=== PATIENT | female | born 1955 | race African-American/Black ===

== ENCOUNTER 2017-12-05 11:11 | Emergency (ER) | payer OTHER ==
[2017-12-05 11:18] VITALS: BP 116/81; PULSE 104; TEMP 98.4; BMI 24.3
== END 2017-12-05 11:20 | disposition left against medical advice (07) ==
LOC: JER 11:11
DX: Z53.21 Procedure and treatment not carried out due to patient leaving prior to being seen by health care provider (principal)
CPT/HCPCS: 99281-25

== ENCOUNTER 2019-02-26 10:34 | Inpatient (IN) | payer OTHER ==
[2019-02-26] MEDS ORDERED: ALBUTEROL SO4 2.5/IPRATROPIUM 0.5 INH SOL 3 ML VIAL.NEB. NEB ONE ×3 (10:48→16:13)
[2019-02-26] MEDS ORDERED: MAGNESIUM SULFATE IN WATER 2 GM/50 ML IVPB IVPB ONE (10:54)
[2019-02-26] MEDS ORDERED: DEXAMETHASONE SOD PHOSPHATE 10 MG/1 ML VIAL ONE (10:54)
--- NOTE | 2019-02-26 11:04 | PDOC ---
Documentation entered by Mehrdad Mckeon SCRIBE, acting as scribe for Cathleen Campbell MD. Cathleen Campbell MD: This documentation has been prepared by the Mike bautista Nirvannie, SCRIBE, under my direction and personally reviewed by me in its entirety. I confirm that the documentation accurately reflects all work, treatment, procedures, and medical decision making performed by me. History of Present Illness - General Chief Complaint: Shortness of Breath Stated Complaint: SOB Time Seen by Provider: 02/26/19 10:40 History Source: Patient, EMS, Primary Care Provider Exam Limitations: No Limitations - History of Present Illness Initial Comments: 02/26/19 11:20 63YOF with significant past medical history of COPD (2L nocturnal O2 usage, 4 cigarettes/day), breast cancer (s/p left lower lobe resection), breast cancer (s /p blt mastectomy), HTN, CAD (failed stress test needs catheterization), angina pectoris, cataracts, and bipolar disorder 4 days of progressively worsening shortness of breath. As per PCP Dr. Jorge, patient was being evaluated in his office at which time she was significantly short of breath. Patient notes her symptoms have been ongoing for the past 4 days with associated chest tightness and productive cough with yellowish brown sputum. She notes one episode of hemoptysis yesterday described as a singular clot. Patient is positive for sick contacts, her nephew was flu positive. She notes associated paresthesias to the fingertips. As per EMS, patient received 2 Combivent treatments, 10mg of Decadron, and 2g of Mg. Denies fever, chills, dizziness, weakness, N, V, D, abdominal pain, bladder and bowel problems, leg swelling, No new changes in medications. Allergies: Morphine. Past Medical History: COPD (2L nocturnal O2 usage, 4 cigarettes/day), breast cancer (s/p left lower lobe resection), breast cancer (s/p blt mastectomy), HTN , CAD (failed stress test needs catheterization), bipolar disorder Social history: Lives with family. +Smoker (4/day previously 1.5 pack/day) No ETOH or drug use. Surgical history: Double mastectomy, Left Lower Lobe resection Meds: as documented in EMR PMD: Dr. Jared Jorge Traffic Sign Erection Supervisor: Dr. Arreaga 02/26/19 11:54 02/26/19 14:40 Past History - Past Medical History Allergies/Adverse Reactions: Allergies Allergy/AdvReac Type Severity Reaction Status Date / Time morphine Allergy Severe Difficulty Verified 06/11/18 13:10 Breathing Home Medications: Ambulatory Orders Aripiprazole [Abilify] 20 mg PO DAILY 09/01/15 Bupropion HCl [Wellbutrin Xl -] 100 mg PO DAILY 09/01/15 Cyclosporine [Restasis] 1 each OP BID 09/01/15 Fluocinonide 120 gm TP TID 09/01/15 Hydroxyzine HCl 50 mg PO DAILY 09/01/15 Latanoprost 0.005% Eye Drops [Xalatan 0.005% Eye Drops -] 1 drop HS 09/01/15 Tamoxifen Citrate 10 mg PO BID 09/01/15 Tobramycin/Lotepred Etab [Zylet Eye Drops] 2 drop OU BID 09/01/15 Travoprost [Travatan Z] 1 drop OU HS 09/01/15 Acetaminophen [Tylenol .Regular Strength -] 650 mg PO Q4H PRN #0 tablet Albuterol 0.083% Nebulizer Lindsay [Ventolin 0.083% Nebulizer Soln -] 1 amp NEB Q4H PRN #25 amp 09/07/15 Albuterol Sulfate [Proair Respiclick] 2 puff IH Q4H PRN #1 aer.[email or web address] 09/07/15 Aspirin Coated [Ecotrin -] 325 mg PO DAILY #30 tablet. 09/07/15 Atorvastatin Ca [Lipitor] 40 mg PO HS #20 tablet 09/07/15 Budesonide/Formeterol Fumarate [SYMBICORT 160/4.5mcg -] 2 puff IH BID #1 inhaler 09/07/15 Lactobacillus Acidophilus [Bacid -] 1 tab PO BID #60 tab 09/07/15 Prednisone 10 mg PO DAILY #20 tablet 09/07/15 Tiotropium [place] [Spiriva] 1 puff IH DAILY inh 09/07/15 Cancer: Yes (left lung resection, lung ca x 5) COPD: Yes HTN: Yes Hypercholesterolemia: No - Surgical History Lung Surgery: Yes (lower left lobe, rosemary mastectomy) - Psycho Social/Smoking Cessation Hx Smoking History: Current every day smoker Have you smoked in the past 12 months: No Number of Cigarettes Smoked Daily: 10 'Breaking Loose' booklet given: 09/01/15 Hx Alcohol Use: No Drug/Substance Use Hx: No Review of Systems - Review of Systems Able to Perform ROS?: Yes Comments:: 02/26/19 11:20 Constitutional: no fevers or chills. HEENT: no headache or dizziness. +nasal congestion. No visual/hearing disturbances. CVS: +Chest tightness. no syncope. Resp: + sob. + cough. Gastrointestinal: no abdominal pain, nausea or vomiting. Genitourinary: no urinary sx, hematuria. no urgency or frequency. MUSCULOSKELETAL: No joint pain and swelling. No neck or back pain. SKIN: no redness or skin changes, no discharge, no rash. No wounds. Hematologic: no easy bruising/bleeding. NEUROLOGIC: No headache, dizziness, LOC or altered mental status. No weakness. + Parasthesias of fingertips. Psych: no anxiety or depression All other systems reviewed and negative, or as documented in HPI. 02/26/19 11:54 02/26/19 11:54 *Physical Exam - Physical Exam 02/26/19 11:21 General: +Frail appearing. Awake and alert, +Moderate to severe respiratory distress. unable to speak full sentences. HEENT: NCAT, PERRL, EOMI, clear conjunctiva, anicteric, moist mucous membranes , clear oropharynx, no oral lesions.. Neck: neck supple, FROM Resp: +Expiratory and inspiratory wheezing throughout. +Increased work of breathing. +Tachypneic. retractions. CVS: +Tachycardia. no murmurs, 2+ peripheral pulses throughout, no peripheral edema Abdomen: soft, NTND, no rebound or guarding. No CVAT. Back: nontender, normal inspection and ROM MSK: no edema, BANUELOS x4, ROM intact. No clubbing or cyanosis. normal bulk and tone. Extremities: no calf tenderness, no swelling Neuro: alert, oriented appropriately; no focal neurologic deficits Skin: warm and well perfused, cap refill <2 sec, normal color 02/26/19 11:53 Heart Score/ECG Review #1 ECG reviewed & interpreted by me at: 10:55 General ECG Interpretation: Sinus Rhythm, Normal Intervals Compared to previous ECG there are: Changes noted 02/26/19 11:01 EKG sinus tachycardia at 107 bpm, no interval abnormalities, left axis deviation , narrow QRS, ST and T wave segments and morphology normal. Nonspecific T wave abnormalities likely rate related/artifact ED Treatment Course - LABORATORY CBC & Chemistry Diagram: 02/26/19 11:20 02/26/19 11:20 - RADIOLOGY Radiology Studies Ordered: Category Date Time Status CHEST X-RAY PORTABLE* [RAD] Stat Radiology 02/26/19 10:48 Ordered Medical Decision Making - Medical Decision Making 02/26/19 11:02 Vital Signs Temp Pulse Resp BP Pulse Ox 97.8 F 109 H 32 H 151/89 100 02/26/19 11:10 02/26/19 11:10 02/26/19 11:10 02/26/19 11:10 02/26/19 11:10 DDx SOB: ACS, PE, PTX, CHF, COPD exac, pulmonary edema, pleurisy, pneumonia, viral syndrome. effusion. anemia, electrolyte/metabolic derangements. influenza. vitals tachy and tachypneic 30s, increased WOB. +wheezing throughout, sats 100 % on nebs. moderate to severe respiratory distress, tachy; no hypoxia, but increased WOB s/p combivents x2, Mag 2g and Dexamethasone 10mg x1 en route with EMS will give one more, Bipap initiated on 12/15, tolerated for about 1 hour, got more anxious and declines further bipap/ABG ABG/labs, flu swab, CXR refused ABG, check VBG for now wnl, no acidosis or CO2 retention on VBG labs and lytes wnl, no wbc ct. no indication for cultures cxr clear, flu swab pending, pt initially refused. hold abx, no e/o bacterial infection as of now, still more likely viral syndrome. EKG sinus tachycardia, nonspecific T wave abnormalities, no ST elevations or depressions 02/26/19 14:27 Dimer is negative so unlikely to be PE, persistently tacky likely due to the COPD exacerbation nebulizer administration. Work of breathing is improved, placed on 4 L nasal cannula for oxygen supplementation and stable placed on Q4H albuterol for her wheezing, much improved on reassessment, spO2 > 95% on O2, tachy likely from nebs/COPD flare. Admit for severe COPD exacerbation. tele, supp O2, q4h albuterol, respiratory monitoring, tele/spO2, medical management, inpatient s/o to [facility], admitting to Dr Fred carrasco 02/26/19 14:45 Discharge - Discharge Information Problems reviewed: Yes Clinical Impression/Diagnosis: Acute exacerbation of chronic obstructive pulmonary disease (COPD) Condition: Fair - Admission Yes - Follow up/Referral - Patient Discharge Instructions - Post Discharge Activity
[2019-02-26 11:48] LABS: BASO % 0.6 % (0-2.0); EOS % 0.7 % (0-4.5); HEMATOCRIT 45.7 % (32.4-45.2); HEMOGLOBIN 15.3 GM/dL (10.7-15.3); LYMPH % 50.5 % (8-40); MCH 31.3 pg (25.7-33.7); MCHC 33.6 g/dl (32.0-36.0); MEAN CELL VOLUME 93.2 fl (80-96); MEAN PLT VOLUME 7.9 fl (7.5-11.1); NEUT % 42.2 % (42.8-82.8); PLATELET COUNT 351 K/MM3 (134-434); RDW 14.8 % (11.6-15.6); WHITE BLOOD COUNT 8.2 K/mm3 (4.0-10.0)
[2019-02-26] MEDS ORDERED: LORazepam 2 MG/ML SDV VIAL ONE (12:04)
[2019-02-26 12:12] LABS: VENOUS PC02 40.3 mmHg (38-52); VENOUS PH 7.37 (7.31-7.41)
[2019-02-26 12:16] LABS: ALBUMIN 3.8 g/dl (3.4-5.0); BILIRUBIN,TOTAL 0.4 mg/dL (0.2-1); BLOOD UREA NITROGEN 11.4 mg/dL (7-18); CREATININE 0.8 mg/dL (0.55-1.3); MAGNESIUM 2.8 mg/dL (1.8-2.4); POTASSIUM 3.9 mmol/L (3.5-5.1); TOT PROT 7.6 g/dl (6.4-8.2)
--- NOTE | 2019-02-26 12:29 | EKG ---
Test Reason : Blood Pressure : / mmHG Vent. Rate : 107 BPM Atrial Rate : 107 BPM P-R Int : 128 ms QRS Dur : 114 ms QT Int : 396 ms P-R-T Axes : 064 -34 058 degrees QTc Int : 528 ms POOR DATA QUALITY, INTERPRETATION MAY BE ADVERSELY AFFECTED SINUS TACHYCARDIA POSSIBLE LEFT ATRIAL ENLARGEMENT LEFT AXIS DEVIATION LEFT VENTRICULAR HYPERTROPHY POSSIBLE INFERIOR INFARCT , AGE UNDETERMINED PROLONGED QT ABNORMAL ECG WHEN COMPARED WITH ECG OF 01-SEP-2015 13:14, QT HAS LENGTHENED Confirmed by MD Samantha, Arthur ([id number]) on 02/26/2019 12:28:56 PM Referred By: Confirmed By:Arthur Singh MD
[2019-02-26 14:04] LABS: INR 0.92 (0.83-1.09); PROTHROMBIN TIME (PATIENT) 10.8 SEC (9.7-13.0)
[2019-02-26 14:07] LABS: ACTIVATED PTT 36.5 SECONDS (25.2-36.5)
[2019-02-26] MEDS ORDERED: ALBUTEROL SO4 0.083% IH SOL 2.5 MG/3 ML VIAL.NEB. NEB ONE ×2 (14:26→14:32)
--- NOTE | 2019-02-26 14:44 | HP ---
Admitting History and Physical - Primary Care Physician PCP: Jared Jorge - Admission Chief Complaint: progressive worsening SOB over 4 days History of Present Illness: 63YOF with PMH of COPD (2L nocturnal O2 usage, 4 cigarettes/day), breast cancer (s/p left lower lobe resection), breast cancer (s/p blt mastectomy), HTN, CAD ( failed stress test needs catheterization), angina pectoris, cataracts, and bipolar disorder. 4 days of progressively worsening shortness of breath. As per PCP Dr. Jorge, patient was being evaluated in his office at which time she was significantly short of breath. Patient notes her symptoms have been ongoing for the past 4 days with associated chest tightness and productive cough with yellowish brown sputum. She notes one episode of hemoptysis yesterday described as a singular clot. Patient is positive for sick contacts, her nephew was flu positive. She notes associated paresthesias to the fingertips. As per EMS, patient received 2 Combivent treatments, 10mg of Decadron, and 2g of Mg with slight improvement. History Source: Patient Limitations to Obtaining History: No Limitations - Past Medical History Cardiovascular: Yes: CAD (psitive ST pending cardiac cath), HTN Pulmonary: Yes: COPD, O2 Dependent (2L at night), Other (lung fungal infection s /p resection) Gastrointestinal: Yes: Cancer Heme/Onc: Yes: Cancer (Breast) Psych: Yes: Bipolar - Past Surgical History Past Surgical History: Yes: Mastectomy (BL) Additional Past Surgical History: Lung resection LLL - Smoking History Smoking history: Current every day smoker (4 cigarettes /day) Have you smoked in the past 12 months: Yes Aproximately how many cigarettes per day: 4 - Alcohol/Substance Use Hx Alcohol Use: No History of Substance Use: reports: None - Social History Usual Living Arrangement: Yes: With Child ADL: Independent Occupation: unemployed History of Recent Travel: No (Traveled to [facility] by car) Home Medications - Allergies Allergies/Adverse Reactions: Allergies Allergy/AdvReac Type Severity Reaction Status Date / Time morphine Allergy Severe Difficulty Verified 06/11/18 13:10 Breathing - Home Medications Home Medications: Ambulatory Orders Aripiprazole [Abilify] 20 mg PO DAILY 09/01/15 Bupropion HCl [Wellbutrin Xl -] 100 mg PO DAILY 09/01/15 Cyclosporine [Restasis] 1 each OP BID 09/01/15 Fluocinonide 120 gm TP TID 09/01/15 Hydroxyzine HCl 50 mg PO DAILY 09/01/15 Latanoprost 0.005% Eye Drops [Xalatan 0.005% Eye Drops -] 1 drop HS 09/01/15 Tamoxifen Citrate 10 mg PO BID 09/01/15 Tobramycin/Lotepred Etab [Zylet Eye Drops] 2 drop OU BID 09/01/15 Travoprost [Travatan Z] 1 drop OU HS 09/01/15 Acetaminophen [Tylenol .Regular Strength -] 650 mg PO Q4H PRN #0 tablet Albuterol 0.083% Nebulizer Lindsay [Ventolin 0.083% Nebulizer Soln -] 1 amp NEB Q4H PRN #25 amp 09/07/15 Albuterol Sulfate [Proair Respiclick] 2 puff IH Q4H PRN #1 aer.pow.ba 09/07/15 Aspirin Coated [Ecotrin -] 325 mg PO DAILY #30 tablet. 09/07/15 Atorvastatin Ca [Lipitor] 40 mg PO HS #20 tablet 09/07/15 Budesonide/Formeterol Fumarate [SYMBICORT 160/4.5mcg -] 2 puff IH BID #1 inhaler 09/07/15 Lactobacillus Acidophilus [Bacid -] 1 tab PO BID #60 tab 09/07/15 Prednisone 10 mg PO DAILY #20 tablet 09/07/15 Tiotropium [place] [Spiriva] 1 puff IH DAILY inh 09/07/15 Family Medical History Family Hx Cancer: Grandmother (maternal) Family Hx Cardiac Disorders: Mother, Father (Htn & CAD) Family Hx Diabetes: Mother, Father Family Hx Gastrointestinal Disorder: Father (cirrohosis) Review of Systems - Review of Systems Constitutional: reports: Chills, Fever (reported), Lethargy, Loss of Appetite, Malaise, Weakness Eyes: reports: No Symptoms HENT: reports: No Symptoms Neck: reports: No Symptoms Cardiovascular: reports: Shortness of Breath Respiratory: reports: Cough, Orthopnea, SOB, SOB on Exertion, Wheezing Gastrointestinal: reports: Nausea Genitourinary: reports: No Symptoms Breasts: reports: No Symptoms Reported Musculoskeletal: reports: Muscle Weakness Integumentary: reports: No Symptoms Neurological: reports: Parasthesia (to fongers BL) Endocrine: reports: No Symptoms Hematology/Lymphatic: reports: No Symptoms Psychiatric: reports: No Symptoms Physical Examination Vital Signs: Vital Signs Temperature 97.8 F 02/26/19 11:10 Pulse Rate 112 H 02/26/19 13:00 Respiratory Rate 21 H 02/26/19 13:00 Blood Pressure 112/84 02/26/19 13:00 O2 Sat by Pulse Oximetry (%) 98 02/26/19 13:00 Constitutional: Yes: Well Nourished, Mild Distress (r/t admission) Eyes: Yes: WNL, Conjunctiva Clear, EOM Intact HENT: Yes: WNL, Atraumatic, Normocephalic Neck: Yes: WNL, Supple, Trachea Midline Cardiovascular: Yes: Regular Rate and Rhythm, Tachycardia Respiratory: Yes: Cough (productive), Diminished (at bases), On Nasal O2 (4L), Wheezes (BL) Gastrointestinal: Yes: WNL, Normal Bowel Sounds ...Rectal Exam: Yes: Deferred Breast(s): Yes: Other (BL mastectomy) Musculoskeletal: Yes: Joint Stiffness Extremities: Yes: WNL Edema: No Peripheral Pulses WNL: Yes Peripheral Pulses: Left Radial: 2+, Right Radial: 2+, Left Doralis Pedis: 2+, Right Dorsalis Pedis: 2+, Left Femoral: 2+, Right Femoral: 2+ Integumentary: Yes: WNL Neurological: Yes: WNL, Alert, Oriented ...Motor Strength: LUE, LLE, RUE, RLE (generalized weakness) Psychiatric: Yes: WNL Labs: CBC, BMP 02/26/19 11:20 02/26/19 11:20 Imaging - Results Chest X-ray: Image Reviewed (no effusions, infiltrates) Problem List - Problems (1) Prophylactic measure Assessment/Plan: FEN diabetic diet IVF @ 75cc/hr until tomorrow(reported decreased PO intake) monitor electrolytes DVT heparin sq Dispo admit to med surg full code discharge planning Code(s): Z29.9 - ENCOUNTER FOR PROPHYLACTIC MEASURES, UNSPECIFIED (2) Acute exacerbation of chronic obstructive pulmonary disease (COPD) Assessment/Plan: Given decadron, combivent & Mg by EMS duo nebs q6h solumedrol 60mg q6h supplemental O2 prn BiPap if needed CXR without effusions/infiltarted refused Chest CTA, low suspicison for PE pulmonary consultation requested Problems reviewed: Yes Code(s): J44.1 - CHRONIC OBSTRUCTIVE PULMONARY DISEASE W (ACUTE) EXACERBATION (3) Bipolar disorder Assessment/Plan: c/w home medications abilify and wellbutrin Code(s): F31.9 - BIPOLAR DISORDER, UNSPECIFIED (4) CAD (coronary artery disease) Assessment/Plan: reported positive ST, pending cardiac cath Trop .02 c/w home dose asa Code(s): I25.10 - ATHSCL HEART DISEASE OF [place] CORONARY ARTERY W/O ANG PCTRS (5) SOB (shortness of breath) Assessment/Plan: supplemental O@ prn Bipap if needed inhaled bronchodilators solumedrol 60mg q6 pulmonary consult requested Code(s): R06.02 - SHORTNESS OF BREATH (6) Smoker Assessment/Plan: smoke 4 cigarettes /day counseled on smoking cessation Code(s): F17.200 - NICOTINE DEPENDENCE, UNSPECIFIED, UNCOMPLICATED Visit type - Emergency Visit Emergency Visit: Yes ED Registration Date: 02/26/19 Care time: The patient presented to the Emergency Department on the above date and was hospitalized for further evaluation of their emergent condition. - New Patient This patient is new to me today: Yes Date on this admission: 02/26/19 - Critical Care Critical Care patient: No
[2019-02-26] MEDS ORDERED: ACETAMINOPHEN 325 MG TABLET (FP) PO PRN (14:50)
[2019-02-26] MEDS ORDERED: SODIUM CHLORIDE 1,000 ML IV SCH (15:45)
[2019-02-26] MEDS ORDERED: ALBUTEROL SO4 0.083% IH SOL 2.5 MG/3 ML VIAL.NEB. NEB SCH (16:00)
[2019-02-26] MEDS ORDERED: methylPREDNISolone NA SUCC 40 MG/1 ML VIAL ONE (16:13)
[2019-02-26] MEDS: ALBUTEROL SO4 2.5/IPRATROPIUM 0.5 INH SOL 3 ML VIAL.NEB. NEB SCH ×2 (16:23→20:00)
[2019-02-26] MEDS: INSULIN SLIDING SCALE (NOVOLOG) 1 VIAL SQ SCH ×2 (16:31→21:22)
[2019-02-26] MEDS: methylPREDNISolone NA SUCC 40 MG/1 ML VIAL IVPUSH SCH ×2 (17:01→21:11)
[2019-02-26] MEDS ORDERED: INSULIN (NOVOLOG) ASPART 100 UNITS/ML 10ML VIAL ONE (20:58)
[2019-02-26] MEDS: ATORVASTATIN CA 40 MG TABLET (FP) PO SCH (21:12)
[2019-02-26] MEDS: LACTOBACILLUS ACIDOPHILUS 1 TABLET PO SCH (21:12)
[2019-02-26] MEDS: LATANOPROST 0.005% OPHTH SOLN 2.5ML BOTTLE OU SCH (22:47)
[2019-02-26] MEDS: TAMOXIFEN CITRATE 10 MG TABLET PO SCH (22:47)
[2019-02-26] MEDS: HEPARIN NA (PORCINE) 5,000 UNITS/ML 1ML VIAL SQ SCH (22:50)
[2019-02-27 01:58] VITALS: BMI 25.0
[2019-02-27] MEDS: methylPREDNISolone NA SUCC 40 MG/1 ML VIAL IVPUSH SCH ×4 (03:11→22:50)
[2019-02-27] MEDS: INSULIN SLIDING SCALE (NOVOLOG) 1 VIAL SQ SCH ×4 (06:34→23:02)
--- NOTE | 2019-02-27 07:41 | PN ---
Progress Note, Physician Chief Complaint: Patient very upset, wanting to sign out AMA. Audibly wheezing History of Present Illness: 63YOF with PMH of COPD (2L nocturnal O2 usage, 4 cigarettes/day), breast cancer (s/p left lower lobe resection), breast cancer (s/p blt mastectomy), HTN, CAD ( failed stress test needs catheterization), angina pectoris, cataracts, and bipolar disorder. 4 days of progressively worsening shortness of breath. As per PCP Dr. Jorge, patient was being evaluated in his office at which time she was significantly short of breath. Patient notes her symptoms have been ongoing for the past 4 days with associated chest tightness and productive cough with yellowish brown sputum. She notes one episode of hemoptysis yesterday described as a singular clot. Patient is positive for sick contacts, her nephew was flu positive. She notes associated paresthesias to the fingertips. As per EMS, patient received 2 Combivent treatments, 10mg of Decadron, and 2g of Mg with slight improvement. - Current Medication List Current Medications: Active Medications Acetaminophen (Tylenol -) 650 mg PO Q6H PRN PRN Reason: FEVER Albuterol/Ipratropium (Duoneb -) 1 amp NEB RQID [facility] Last Admin: 02/26/19 20:00 Dose: 1 amp Aripiprazole (Abilify) 20 mg PO DAILY [facility] Aspirin (Ecotrin -) 325 mg PO DAILY [facility] Atorvastatin Calcium (Lipitor -) 40 mg PO HS [facility] Last Admin: 02/26/19 21:12 Dose: 40 mg Bupropion HCl (Wellbutrin Xl -) 150 mg PO DAILY [facility] Heparin Sodium (Porcine) (Heparin -) 5,000 unit SQ BID [facility] Last Admin: 02/26/19 22:50 Dose: Not Given Sodium Chloride (Normal Saline -) 1,000 mls @ 75 mls/hr IV ASDIR [facility] Last Admin: 02/26/19 16:23 Dose: 75 mls/hr Insulin Aspart (Novolog Vial Sliding Scale -) 1 vial SQ ACHS [facility]; Protocol Last Admin: 02/27/19 06:34 Dose: Not Given Lactobacillus Acidophilus (Bacid -) 1 tab PO BID [facility] Last Admin: 02/26/19 21:12 Dose: 1 tab Latanoprost (Xalatan 0.005% Eye Drops -) 1 drop OU HS [facility] Last Admin: 02/26/19 22:47 Dose: 1 drop Methylprednisolone Sodium Succinate (Solu-Medrol -) 60 mg IVPUSH Q6H-IV [facility] Last Admin: 02/27/19 03:11 Dose: 60 mg Tamoxifen Citrate (Tamoxifen Citrate) 10 mg PO BID [facility] Last Admin: 02/26/19 22:47 Dose: 10 mg - Objective Vital Signs: Vital Signs Temperature 98.7 F 02/27/19 06:00 Pulse Rate 76 02/27/19 06:00 Respiratory Rate 20 02/27/19 06:00 Blood Pressure 145/98 02/27/19 06:00 O2 Sat by Pulse Oximetry (%) 94 L 02/26/19 19:30 Constitutional: Yes: Well Nourished, Anxious, Moderate Distress Eyes: Yes: WNL, Conjunctiva Clear HENT: Yes: WNL, Atraumatic, Normocephalic Neck: Yes: WNL, Supple, Trachea Midline Cardiovascular: Yes: Regular Rate and Rhythm, Tachycardia Respiratory: Yes: Cough, Poor Air Entry, SOB, Wheezes Gastrointestinal: Yes: WNL, Normal Bowel Sounds ...Rectal Exam: Yes: Deferred Genitourinary: Yes: WNL Breast(s): Yes: WNL Musculoskeletal: Yes: WNL Extremities: Yes: WNL Edema: No Peripheral Pulses WNL: Yes Peripheral Pulses: Left Radial: 2+, Right Radial: 2+, Left Doralis Pedis: 2+, Right Dorsalis Pedis: 2+, Left Femoral: 2+, Right Femoral: 2+ Integumentary: Yes: WNL Neurological: Yes: WNL, Alert, Oriented ...Motor Strength: WNL Psychiatric: Yes: Alert, Oriented, Agitated Labs: INR, PTT INR 0.92 (0.83-1.09) 02/26/19 13:00 - ....Imaging Chest X-ray: Image Reviewed Problem List - Problems (1) Prophylactic measure Assessment/Plan: FEN regular diet taking adequate PO intake now, IVF stopped monitor electrolytes DVT heparin sq Dispo maintain as inpatient full code discharge planning Code(s): Z29.9 - ENCOUNTER FOR PROPHYLACTIC MEASURES, UNSPECIFIED (2) Acute exacerbation of chronic obstructive pulmonary disease (COPD) Assessment/Plan: c/w duo nebs q6h solumedrol 60mg q6h supplemental O2 prn BiPap if needed CXR without effusions/infiltarted refused Chest CTA, low suspicison for PE pulmonary consultation requested, Dr Arreaga to see Code(s): J44.1 - CHRONIC OBSTRUCTIVE PULMONARY DISEASE W (ACUTE) EXACERBATION (3) Bipolar disorder Assessment/Plan: c/w home medications abilify and wellbutrin Code(s): F31.9 - BIPOLAR DISORDER, UNSPECIFIED (4) CAD (coronary artery disease) Assessment/Plan: reported positive ST, pending cardiac cath Trop .02 c/w home dose asa Code(s): I25.10 - ATHSCL HEART DISEASE OF [place] CORONARY ARTERY W/O ANG PCTRS (5) SOB (shortness of breath) Assessment/Plan: supplemental O2 prn Bipap if needed inhaled bronchodilators solumedrol 60mg q6 pulmonary consult requested Code(s): R06.02 - SHORTNESS OF BREATH (6) Smoker Assessment/Plan: smoke 4 cigarettes /day counseled on smoking cessation Code(s): F17.200 - NICOTINE DEPENDENCE, UNSPECIFIED, UNCOMPLICATED Visit type - Emergency Visit Emergency Visit: Yes ED Registration Date: 02/26/19 Care time: The patient presented to the Emergency Department on the above date and was hospitalized for further evaluation of their emergent condition. - New Patient This patient is new to me today: No - Critical Care Critical Care patient: No - Discharge Referral Referred to [facility] No
[2019-02-27 07:49] LABS: BASO % 0.2 % (0-2.0); HEMATOCRIT 41.9 % (32.4-45.2); HEMOGLOBIN 14.1 GM/dL (10.7-15.3); LYMPH % 13.1 % (8-40); MCH 31.1 pg (25.7-33.7); MCHC 33.5 g/dl (32.0-36.0); MEAN CELL VOLUME 92.9 fl (80-96); MEAN PLT VOLUME 8.3 fl (7.5-11.1); MONO % 0.8 % (3.8-10.2); NEUT % 85.9 % (42.8-82.8); PLATELET COUNT 308 K/MM3 (134-434); RBC 4.51 M/mm3 (3.60-5.2); RDW 14.9 % (11.6-15.6); WHITE BLOOD COUNT 8.1 K/mm3 (4.0-10.0)
[2019-02-27 07:53] LABS: ALBUMIN 3.6 g/dl (3.4-5.0); BILIRUBIN,TOTAL 0.3 mg/dL (0.2-1); BLOOD UREA NITROGEN 11.6 mg/dL (7-18); CALCIUM 9.1 mg/dL (8.5-10.1); CREATININE 0.8 mg/dL (0.55-1.3); MAGNESIUM 2.2 mg/dL (1.8-2.4); POTASSIUM 4.4 mmol/L (3.5-5.1)
[2019-02-27] MEDS: ALBUTEROL SO4 2.5/IPRATROPIUM 0.5 INH SOL 3 ML VIAL.NEB. NEB SCH ×4 (09:20→20:33)
--- NOTE | 2019-02-27 09:36 | HOSP ---
Subjective - Review of Symptoms Pulmonary: Yes: Dyspnea, Other (wheezing) Neurological: Yes: Other (agitation) Physical Examination Vital Signs: Vital Signs Temperature 98.7 F 02/27/19 06:00 Pulse Rate 76 02/27/19 06:00 Respiratory Rate 20 02/27/19 06:00 Blood Pressure 145/98 02/27/19 06:00 O2 Sat by Pulse Oximetry (%) 94 L 02/26/19 19:30 Respiratory: Yes: Accessory Muscle Use, Poor Air Entry, SOB, Tachypnea, Wheezes Psychiatric: Yes: Agitated Labs: CBC, BMP 02/27/19 06:40 02/27/19 06:40 Hospitalist Encounter Assessment: Notified by JAMES Rachel that patient wants to sign out AMA. She is upset that she is on a diabetic diet and wants to be transfered to another hospital. Pt was with audible wheezing, took off NC and very agitated. Calmed pt and allowed O2 to be placed. Changed diet to regular and agreed to stay. Pending pulmonary consultation Critical Care Total Critical Care Time (in minutes): 30 Critical Care Statement: The care of this patient involved high complexity decision making to prevent further life threatening deterioration of the patient 's condition and/or to evaluate & treat vital organ system(s) failure or risk of failure.
[2019-02-27] MEDS ORDERED: ASPIRIN 325 MG ENTERIC COATED TABLET (FP) PO SCH (10:00)
[2019-02-27] MEDS ORDERED: ARIPiprazole 20 MG TABLET PO SCH (10:00)
[2019-02-27] MEDS ORDERED: PT OWN MED DRAWER 7, Y5N ONE (10:22)
[2019-02-27] MEDS: HEPARIN NA (PORCINE) 5,000 UNITS/ML 1ML VIAL SQ SCH ×2 (10:57→22:58)
[2019-02-27] MEDS: LACTOBACILLUS ACIDOPHILUS 1 TABLET PO SCH ×2 (10:57→22:50)
[2019-02-27] MEDS: TAMOXIFEN CITRATE 10 MG TABLET PO SCH ×2 (10:57→22:56)
[2019-02-27] MEDS ORDERED: ARIPiprazole 10 MG TABLET PO SCH (11:39)
--- NOTE | 2019-02-27 14:05 | PN ---
Progress Note (short form) - Note Progress Note: PULMONARY CONSULTATION DICTATED 02/27/19 IMP ACUTE RESPIRATORY DISTRESS ACUTE ON CHRONIC HYPOXEMIC RESPIRATORY FAILURE ADVANCED COPD WITH ACUTE EXACERBATION URI ASHD + ABNORMAL STRESS HTN HLD H/O BREAST CA S/P MASTECTOMY H/O PARTIAL LLL RESECTION SECONDARY FUNGAL INFECTION TOBACCO ABUSE BIPOLAR PROLONGED QT PLAN IV STEROIDS INHALED BRONCHODILATORS O2 ABX F/U CHEST X-RAYS SMOKING CESSATION COUNSELED DR FISCHER Problem List - Problems (1) Acute on chronic respiratory failure with hypoxemia Code(s): J96.21 - ACUTE AND CHRONIC RESPIRATORY FAILURE WITH HYPOXIA (2) Acute exacerbation of chronic obstructive pulmonary disease (COPD) Code(s): J44.1 - CHRONIC OBSTRUCTIVE PULMONARY DISEASE W (ACUTE) EXACERBATION (3) Bipolar disorder Code(s): F31.9 - BIPOLAR DISORDER, UNSPECIFIED (4) CAD (coronary artery disease) Code(s): I25.10 - ATHSCL HEART DISEASE OF [place] CORONARY ARTERY W/O ANG PCTRS (5) Cataract Code(s): H26.9 - UNSPECIFIED CATARACT (6) History of breast cancer Code(s): Z85.3 - PERSONAL HISTORY OF MALIGNANT NEOPLASM OF BREAST (7) Hyperglycemia Code(s): R73.9 - HYPERGLYCEMIA, UNSPECIFIED (8) SOB (shortness of breath) Code(s): R06.02 - SHORTNESS OF BREATH (9) Smoker Code(s): F17.200 - NICOTINE DEPENDENCE, UNSPECIFIED, UNCOMPLICATED (10) Status post right mastectomy Code(s): Z90.11 - ACQUIRED ABSENCE OF RIGHT BREAST AND NIPPLE
--- NOTE | 2019-02-27 15:40 | CONS ---
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 Patient apparently was at 's office and was noted to have increasing respiratory distress. EMS was called. The patient was treated with 2 Combivents and 10 mg of Decadron and 2 mg of magnesium sulfate and transferred to the ER for further management. Patient states that for the past 4 days or so, she started noticing increasing shortness of breath, cough, and chest congestion. She states she has a cough productive of yellow sputum. Denies hemoptysis. She denies any fevers or chills. On admission, she was started on inhaled bronchodilators as well as steroids. 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 REVIEW OF SYSTEMS: Positive shortness of breath. Positive cough. Positive chest congestion. No fever. No chills. No hemoptysis. No abdominal pain. CURRENT MEDICATIONS: Include Solu-Medrol 60 mg q.6, Tylenol, heparin, Wellbutrin, Bacid, tamoxifen, Abilify, DuoNeb, normal saline, Lipitor, NovoLog, aspirin, Ecotrin, and Xalatan eye drops. PHYSICAL EXAMINATION: General: Patient is a well-developed, well-nourished female, awake, alert, dyspneic, mildly tachypneic. Vital Signs: She is currently afebrile. Heart rate is 118. Blood pressure 138/95. Respiratory rate is 20. O2 saturation is 94% on 2 L. HEENT: Normocephalic, atraumatic. Neck: Supple. Heart: Tachycardic. S1, S2. Chest: Bilateral wheezing throughout. Abdomen: Soft. Bowel sounds are positive. Extremities: No cyanosis or edema. LABORATORY DATA: WBC is 18.1, hemoglobin 14.1, hematocrit 41.9, with a platelet count of 308,000. INR is 0.92. Venous blood gas 7.37, pCO2 of 40, a pO2 of 123. Chemistries: BUN 11, creatinine 0.8. Chest x-ray: No acute infiltrates and effusions. IMPRESSION: 1. [id number] hypoxic respiratory failure secondary to: A. Advanced chronic obstructive pulmonary disease with acute exacerbation. B. Likely upper respiratory tract infection. 2. History of breast cancer, status post mastectomies. 3. History of left lower lobe partial resection secondary to fungal disease. 4. Hypertension. 5. Hyperlipidemia. 6. Atherosclerotic heart disease with abnormal stress. PLAN: IV steroids, inhaled bronchodilators, antibiotic therapy, supplemental O2. Followup chest x-rays. Sputum for C&S. Will follow closely with you. DAPHNE FISCHER M.D. [id number]
[2019-02-27] MEDS ORDERED: CEFUROXIME AXETIL 500 MG TABLET PO SCH (22:00)
[2019-02-27] MEDS: ATORVASTATIN CA 40 MG TABLET (FP) PO SCH (22:50)
[2019-02-27] MEDS: LATANOPROST 0.005% OPHTH SOLN 2.5ML BOTTLE OU SCH (23:00)
[2019-02-28] MEDS: methylPREDNISolone NA SUCC 40 MG/1 ML VIAL IVPUSH SCH ×2 (02:35→08:46)
[2019-02-28] MEDS: INSULIN SLIDING SCALE (NOVOLOG) 1 VIAL SQ SCH (06:25)
[2019-02-28 07:42] VITALS: BP 134/74; PULSE 82; TEMP 99
--- NOTE | 2019-02-28 07:58 | PN ---
Progress Note, Physician History of Present Illness: 63YOF with PMH of COPD (2L nocturnal O2 usage, 4 cigarettes/day), breast cancer (s/p left lower lobe resection), breast cancer (s/p blt mastectomy), HTN, CAD ( failed stress test needs catheterization), angina pectoris, cataracts, and bipolar disorder. 4 days of progressively worsening shortness of breath. As per PCP Dr. Jorge, patient was being evaluated in his office at which time she was significantly short of breath. Patient notes her symptoms have been ongoing for the past 4 days with associated chest tightness and productive cough with yellowish brown sputum. She notes one episode of hemoptysis yesterday described as a singular clot. Patient is positive for sick contacts, her nephew was flu positive. She notes associated paresthesias to the fingertips. As per EMS, patient received 2 Combivent treatments, 10mg of Decadron, and 2g of Mg with slight improvement. - Current Medication List Current Medications: Active Medications Acetaminophen (Tylenol -) 650 mg PO Q6H PRN PRN Reason: FEVER Albuterol/Ipratropium (Duoneb -) 1 amp NEB RQID [facility] Last Admin: 02/27/19 20:33 Dose: Not Given Aripiprazole (Abilify) 20 mg PO DAILY [facility] Last Admin: 02/27/19 12:26 Dose: 20 mg Aspirin (Ecotrin -) 325 mg PO DAILY [facility] Last Admin: 02/27/19 10:58 Dose: 325 mg Atorvastatin Calcium (Lipitor -) 40 mg PO HS [facility] Last Admin: 02/27/19 22:50 Dose: 40 mg Bupropion HCl (Wellbutrin Xl -) 150 mg PO DAILY [facility] Last Admin: 02/27/19 10:55 Dose: 150 mg Cefuroxime Axetil (Ceftin -) 500 mg PO BID [facility] Last Admin: 02/27/19 22:50 Dose: 500 mg Heparin Sodium (Porcine) (Heparin -) 5,000 unit SQ BID [facility] Last Admin: 02/27/19 22:58 Dose: Not Given Insulin Aspart (Novolog Vial Sliding Scale -) 1 vial SQ [facility]; Protocol Last Admin: 02/28/19 06:25 Dose: Not Given Lactobacillus Acidophilus (Bacid -) 1 tab PO BID [facility] Last Admin: 02/27/19 22:50 Dose: 1 tab Latanoprost (Xalatan 0.005% Eye Drops -) 1 drop OU HS [facility] Last Admin: 02/27/19 23:00 Dose: 1 drop Methylprednisolone Sodium Succinate (Solu-Medrol -) 60 mg IVPUSH Q6H-IV [facility] Last Admin: 02/28/19 02:35 Dose: 60 mg Tamoxifen Citrate (Tamoxifen Citrate) 10 mg PO BID [facility] Last Admin: 02/27/19 22:56 Dose: 10 mg - Objective Vital Signs: Vital Signs Temperature 99.0 F 02/28/19 06:00 Pulse Rate 82 02/28/19 06:00 Respiratory Rate 20 02/28/19 06:00 Blood Pressure 134/74 02/28/19 06:00 O2 Sat by Pulse Oximetry (%) 99 02/27/19 21:00 Additional Findings/Remarks: Constitutional: Yes: Well Nourished, Anxious, Moderate Distress Eyes: Yes: WNL, Conjunctiva Clear HENT: Yes: WNL, Atraumatic, Normocephalic Neck: Yes: WNL, Supple, Trachea Midline Cardiovascular: Yes: Regular Rate and Rhythm, Tachycardia Respiratory: Yes: Cough, Poor Air Entry, SOB, Wheezes Gastrointestinal: Yes: WNL, Normal Bowel Sounds ...Rectal Exam: Yes: Deferred Genitourinary: Yes: WNL Breast(s): Yes: WNL Musculoskeletal: Yes: WNL Extremities: Yes: WNL Edema: No Peripheral Pulses WNL: Yes Peripheral Pulses: Left Radial: 2+, Right Radial: 2+, Left Doralis Pedis: 2+, Right Dorsalis Pedis: 2+, Left Femoral: 2+, Right Femoral: 2+ Integumentary: Yes: WNL Neurological: Yes: WNL, Alert, Oriented ...Motor Strength: WNL Psychiatric: Yes: Alert, Oriented, Agitated Labs: CBC, BMP 02/27/19 06:40 02/27/19 06:40 INR, PTT INR 0.92 (0.83-1.09) 02/26/19 13:00 Problem List - Problems (1) Prophylactic measure Code(s): Z29.9 - ENCOUNTER FOR PROPHYLACTIC MEASURES, UNSPECIFIED (2) Acute exacerbation of chronic obstructive pulmonary disease (COPD) Code(s): J44.1 - CHRONIC OBSTRUCTIVE PULMONARY DISEASE W (ACUTE) EXACERBATION (3) Bipolar disorder Code(s): F31.9 - BIPOLAR DISORDER, UNSPECIFIED (4) CAD (coronary artery disease) Code(s): I25.10 - ATHSCL HEART DISEASE OF [place] CORONARY ARTERY W/O ANG PCTRS (5) SOB (shortness of breath) Code(s): R06.02 - SHORTNESS OF BREATH (6) Smoker Code(s): F17.200 - NICOTINE DEPENDENCE, UNSPECIFIED, UNCOMPLICATED
[2019-02-28] MEDS: ALBUTEROL SO4 2.5/IPRATROPIUM 0.5 INH SOL 3 ML VIAL.NEB. NEB SCH (08:45)
--- NOTE | 2019-02-28 08:50 | HOSP ---
Subjective - Review of Symptoms Events since last encounter: Patient demanding to sign out AMA. Remains on high dose steroids and oxygen therapy. Still wheezing. Stating that we are holding her hostage and keeping her against her will. This story writer explained the risks leaving AMA including worsening repsiratory failure requiring intubation and menchanical ventilation, ACS, stroke and and still wants to leave. Physical Examination Vital Signs: Vital Signs Temperature 99.0 F 02/28/19 06:00 Pulse Rate 82 02/28/19 06:00 Respiratory Rate 20 02/28/19 06:00 Blood Pressure 134/74 02/28/19 06:00 O2 Sat by Pulse Oximetry (%) 99 02/27/19 21:00 Labs: CBC, BMP 02/27/19 06:40 02/27/19 06:40 Hospitalist Encounter Assessment: Will audible wheezing off O2
--- NOTE | 2019-02-28 09:02 | DS ---
Physical Exam: SUBJECTIVE: Patient seen and examined Patient demanding to sign out AMA. Remains on high dose steroids and oxygen therapy. Still wheezing. Stating that we are holding her hostage and keeping her against her will. This quality analyst/technical writer explained the risks leaving AMA including worsening repsiratory failure requiring intubation and menchanical ventilation, ACS, stroke and and still wants to leave. Patient was of sound mind and posseses capacity to make medical decisions. Multiple attempts to try to convience patient to stay for further in patient treatment with no avail. AMA form signed and in paper chart OBJECTIVE: Vital Signs Period Temp Pulse Resp BP Sys/Carter Pulse Ox Last 24 Hr 98 F-99.0 F 82-118 20-20 123-138/64-95 99 PHYSICAL EXAM Constitutional: Yes: Well Nourished, Anxious, Moderate Distress Eyes: Yes: WNL, Conjunctiva Clear HENT: Yes: WNL, Atraumatic, Normocephalic Neck: Yes: WNL, Supple, Trachea Midline Cardiovascular: Yes: Regular Rate and Rhythm, Tachycardia Respiratory: Yes: Cough, Poor Air Entry, SOB, Wheezes Gastrointestinal: Yes: WNL, Normal Bowel Sounds ...Rectal Exam: Yes: Deferred Genitourinary: Yes: WNL Breast(s): Yes: WNL Musculoskeletal: Yes: WNL Extremities: Yes: WNL Edema: No Peripheral Pulses WNL: Yes Peripheral Pulses: Left Radial: 2+, Right Radial: 2+, Left Doralis Pedis: 2+, Right Dorsalis Pedis: 2+, Left Femoral: 2+, Right Femoral: 2+ Integumentary: Yes: WNL Neurological: Yes: WNL, Alert, Oriented ...Motor Strength: WNL Psychiatric: Yes: Alert, Oriented, Agitated LABS Laboratory Results - last 24 hr 02/27/19 02/27/19 02/28/19 12:23 22:54 06:24 POC Glucometer 150 134 130 HOSPITAL COURSE: Date of Admission:02/26/19 Date of Discharge: 02/28/19 Problem List - Problems (1) Prophylactic measure Assessment/Plan: FEN regular diet taking adequate PO intake now, IVF stopped monitor electrolytes DVT heparin sq Dispo maintain as inpatient full code discharge planning Code(s): Z29.9 - ENCOUNTER FOR PROPHYLACTIC MEASURES, UNSPECIFIED (2) Acute exacerbation of chronic obstructive pulmonary disease (COPD) Assessment/Plan: c/w duo nebs q6h solumedrol 60mg q6h supplemental O2 prn BiPap if needed CXR without effusions/infiltarted refused Chest CTA, low suspicison for PE pulmonary consultation requested, Dr Arreaga to see Code(s): J44.1 - CHRONIC OBSTRUCTIVE PULMONARY DISEASE W (ACUTE) EXACERBATION (3) Bipolar disorder Assessment/Plan: c/w home medications abilify and wellbutrin Code(s): F31.9 - BIPOLAR DISORDER, UNSPECIFIED (4) CAD (coronary artery disease) Assessment/Plan: reported positive ST, pending cardiac cath Trop .02 c/w home dose asa Code(s): I25.10 - ATHSCL HEART DISEASE OF [place] CORONARY ARTERY W/O ANG PCTRS (5) SOB (shortness of breath) Assessment/Plan: supplemental O2 prn Bipap if needed inhaled bronchodilators solumedrol 60mg q6 pulmonary consult requested Code(s): R06.02 - SHORTNESS OF BREATH (6) Smoker Assessment/Plan: smoke 4 cigarettes /day counseled on smoking cessation Code(s): F17.200 - NICOTINE DEPENDENCE, UNSPECIFIED, UNCOMPLICATED Minutes to complete discharge: 35 Discharge Summary Problems reviewed: Yes Reason For Visit: COPD W EXACERBATION Current Active Problems Acute exacerbation of chronic obstructive pulmonary disease (COPD) (Acute) Acute on chronic respiratory failure with hypoxemia (Acute) Prophylactic measure (Acute) - Instructions Diet, Activity, Other Instructions: Patient demanding to sign out AMA. Remains on high dose steroids and oxygen therapy. Still wheezing. Stating that we are holding her hostage and keeping her against her will. This quality analyst/technical writer explained the risks leaving AMA including worsening repsiratory failure requiring intubation and menchanical ventilation, ACS, stroke and and still wants to leave. Patient refused to stary to have presctirptions for steriods transmitted to pharmacy or follow up care to be provided - Home Medications Comprehensive Discharge Medication List: Ambulatory Orders Aripiprazole [Abilify] 20 mg PO DAILY 09/01/15 Bupropion HCl [Wellbutrin Xl -] 100 mg PO DAILY 09/01/15 Cyclosporine [Restasis] 1 each OP BID 09/01/15 Fluocinonide 120 gm TP TID 09/01/15 Hydroxyzine HCl 50 mg PO DAILY 09/01/15 Latanoprost 0.005% Eye Drops [Xalatan 0.005% Eye Drops -] 1 drop HS 09/01/15 Tamoxifen Citrate 10 mg PO BID 09/01/15 Tobramycin/Lotepred Etab [Zylet Eye Drops] 2 drop OU BID 09/01/15 Travoprost [Travatan Z] 1 drop OU HS 09/01/15 Acetaminophen [Tylenol .Regular Strength -] 650 mg PO Q4H PRN #0 tablet Albuterol 0.083% Nebulizer Lindsay [Ventolin 0.083% Nebulizer Soln -] 1 amp NEB Q4H PRN #25 amp 09/07/15 Albuterol Sulfate [Proair Respiclick] 2 puff IH Q4H PRN #1 [email or web address] 09/07/15 Aspirin Coated [Ecotrin -] 325 mg PO DAILY #30 tablet. 09/07/15 Atorvastatin Ca [Lipitor] 40 mg PO HS #20 tablet 09/07/15 Budesonide/Formeterol Fumarate [SYMBICORT 160/4.5mcg -] 2 puff IH BID #1 inhaler 09/07/15 Lactobacillus Acidophilus [Bacid -] 1 tab PO BID #60 tab 09/07/15 Prednisone 10 mg PO DAILY #20 tablet 09/07/15 Tiotropium Radnor [Spiriva] 1 puff IH DAILY inh 09/07/15 Problem List - Problems (1) Prophylactic measure Code(s): Z29.9 - ENCOUNTER FOR PROPHYLACTIC MEASURES, UNSPECIFIED (2) Acute exacerbation of chronic obstructive pulmonary disease (COPD) Code(s): J44.1 - CHRONIC OBSTRUCTIVE PULMONARY DISEASE W (ACUTE) EXACERBATION (3) Bipolar disorder Code(s): F31.9 - BIPOLAR DISORDER, UNSPECIFIED (4) CAD (coronary artery disease) Code(s): I25.10 - ATHSCL HEART DISEASE OF [place] CORONARY ARTERY W/O ANG PCTRS (5) SOB (shortness of breath) Code(s): R06.02 - SHORTNESS OF BREATH (6) Smoker Code(s): F17.200 - NICOTINE DEPENDENCE, UNSPECIFIED, UNCOMPLICATED This patient is new to me today: No Emergency Visit: Yes ED Registration Date: 02/26/19 Care time: The patient presented to the Emergency Department on the above date and was hospitalized for further evaluation of their emergent condition. Critical Care patient: No - Discharge Referral Referred to [facility] Med P.C.: No
== END 2019-02-28 08:59 | disposition left against medical advice (07) | DRG 190 ==
LOC: JER 10:34 → JERBED 14:25 → J5S 18:26
PROVIDERS: ATTEND Nurse Practitioner Acute Care
DX: J44.1 Chronic obstructive pulmonary disease with (acute) exacerbation (principal); J96.01 Acute respiratory failure with hypoxia; I25.10 Atherosclerotic heart disease of native coronary artery without angina pectoris; I10 Essential (primary) hypertension; F17.210 Nicotine dependence, cigarettes, uncomplicated; F31.9 Bipolar disorder, unspecified; J06.9 Acute upper respiratory infection, unspecified; R94.31 Abnormal electrocardiogram [ECG] [EKG]; H26.9 Unspecified cataract; R73.9 Hyperglycemia, unspecified; Z90.11 Acquired absence of right breast and nipple; Z99.81 Dependence on supplemental oxygen; Z85.3 Personal history of malignant neoplasm of breast; Z85.118 Personal history of other malignant neoplasm of bronchus and lung
CPT/HCPCS: 36415; 71045-TC-FY; 80053; 82550; 82803; 82962; 83735; 84484; 85025; 85379; 85610; 85730; 87804; 93005; 93010; 94640; 94660; 97116-GP; 97162-GP; 99284-25; J7030

== ENCOUNTER 2023-05-16 04:20 | Day surgery (SDC) | payer OTHER ==
[2023-05-10 15:32] VITALS: BMI 25.3
[2023-05-16] MEDS ORDERED: LIDOCAINE HCL/PF 1% SDV 5ML VIAL ONE (07:35)
[2023-05-16] MEDS ORDERED: DEXAMETHASONE SOD PHOSPHATE 10 MG/1 ML VIAL ONE (07:36)
[2023-05-16 07:49] VITALS: TEMP 97.6
[2023-05-16] MEDS ORDERED: ACETAMINOPHEN 500 MG TABLET (FP) PO PRN (09:29)
[2023-05-16] MEDS: LIDOCAINE HCL 1% PRESERVATIVE FREE - 30ML VIAL IJ ONE (10:24)
[2023-05-16] MEDS: IOHEXOL 180 MG/1 ML ML IJ ONE (10:26)
[2023-05-16] MEDS: DEXAMETHASONE SOD PHOSPHATE 10 MG/1 ML VIAL IVPUSH ONE (10:27)
[2023-05-16 10:50] VITALS: RESP 22
[2023-05-16 11:15] VITALS: BP 135/85; PULSE 89
== END 2023-05-16 11:10 | disposition home or self-care (01) ==
LOC: JASU-SURG 04:20
PROVIDERS: ATTEND Pain Medicine Pain Medicine
PROC: 3E0R3BZ Introduction of Anesthetic Agent into Spinal Canal, Percutaneous Approach (ICD-10-PCS; 2023-05-16)
PROC: 3E0R33Z Introduction of Anti-inflammatory into Spinal Canal, Percutaneous Approach (ICD-10-PCS; principal; 2023-05-16 09:30)
DX: M54.16 Radiculopathy, lumbar region (principal); M48.061 Spinal stenosis, lumbar region without neurogenic claudication
CPT/HCPCS: 76000-TC-FY; J1100

== ENCOUNTER 2023-10-12 04:52 | Day surgery (SDC) | payer OTHER ==
[2023-10-10 16:02] VITALS: BMI 26.2
[2023-10-12] MEDS ORDERED: LIDOCAINE HCL/PF 1% SDV 5ML VIAL ONE (07:20)
[2023-10-12 07:32] VITALS: RESP 18
[2023-10-12] MEDS: LIDOCAINE HCL 1% PRESERVATIVE FREE - 30ML VIAL IJ ONE (09:16)
[2023-10-12 09:54] VITALS: BP 135/94; PULSE 97; TEMP 96.6
== END 2023-10-12 10:20 | disposition home or self-care (01) ==
LOC: JASU-SURG 04:52
PROVIDERS: ATTEND Pain Medicine Pain Medicine
PROC: 01HY3MZ Insertion of Neurostimulator Lead into Peripheral Nerve, Percutaneous Approach (ICD-10-PCS; principal; 2023-10-12 09:16)
DX: G89.4 Chronic pain syndrome (principal)
CPT/HCPCS: 64555; C1778

== ENCOUNTER 2024-05-30 05:42 | Day surgery (SDC) | payer OTHER ==
[2024-05-27 11:45] VITALS: BMI 25.4
[2024-05-30] MEDS ORDERED: TRIAMCINOLONE ACET 40MG/1ML VIAL ONE (07:53)
[2024-05-30] MEDS ORDERED: LIDOCAINE HCL/PF 1% SDV 5ML VIAL ONE (07:53)
[2024-05-30] MEDS: LIDOCAINE HCL 1% PRESERVATIVE FREE - 30ML VIAL IJ ONE (10:39)
[2024-05-30] MEDS: BUPIVACAINE HCL/PF 0.5% (5MG/ML) 10 ML VIAL IJ ONE (10:41)
[2024-05-30] MEDS: TRIAMCINOLONE ACET 40MG/1ML VIAL IM ONE (10:42)
[2024-05-30 11:06] VITALS: RESP 22
[2024-05-30 11:21] VITALS: BP 141/89; PULSE 112; TEMP 97.8
== END 2024-05-30 11:29 | disposition home or self-care (01) ==
LOC: JASU-SURG 05:42
PROVIDERS: ATTEND Pain Medicine Pain Medicine
PROC: 3E0U3BZ Introduction of Anesthetic Agent into Joints, Percutaneous Approach (ICD-10-PCS; 2024-05-30)
PROC: 3E0U33Z Introduction of Anti-inflammatory into Joints, Percutaneous Approach (ICD-10-PCS; principal; 2024-05-30 10:30)
DX: M25.552 Pain in left hip (principal)
CPT/HCPCS: 76000-TC-FY